=== PATIENT | male | born 1985 | race Two or more races ===

== ENCOUNTER 2017-04-07 18:03 | Emergency (ER) | payer SELFPAY ==
[~2017-04-07] VITALS: Ht 162.6 cm; Wt 72.6 kg
[2017-04-07 18:11] VITALS: BP 140/96
[2017-04-07] MEDS ORDERED: TRAM50TA PO (18:22)
[2017-04-07] MEDS ORDERED: NAPR500T PO (18:22)
--- NOTE | 2017-04-07 18:22 | PHYS DOC ---
Past Medical History Past Medical History: No Pertinent History Past Surgical History: No Surgical History Alcohol Use: None Drug Use: None Adult General Chief Complaint Chief Complaint: SKIN PROBLEM HPI HPI Patient is a 32 year old male presents to the emergency department with complaint of a rash to the left side of his neck and face for 4 days. He was evaluated at a clinic 2 days ago and placed on acyclovir. He is not given pain medication at that time. He is here seeking pain relief. He denies fever, headache, nausea, vomiting. He denies neck pain although does complain of skin pain on the neck. Review of Systems Review of Systems Constitutional: Denies fever or chills [] Eyes: Denies change in visual acuity, redness, or eye pain [] HENT: Denies nasal congestion or sore throat [] Respiratory: Denies cough or shortness of breath [] Cardiovascular: No additional information not addressed in HPI [] GI: Denies abdominal pain, nausea, vomiting, bloody stools or diarrhea [] : Denies dysuria or hematuria [] Musculoskeletal: Denies back pain or joint pain [] Integument: Denies rash or skin lesions [] Neurologic: Denies headache, focal weakness or sensory changes [] Endocrine: Denies polyuria or polydipsia [] Allergies Allergies Allergies Coded Allergies Type Severity Reaction Last Updated Verified No Known Drug Allergies 04/07/17 No Physical Exam Physical Exam Constitutional: Well developed, well nourished, no acute distress, non-toxic appearance. [] HENT: Normocephalic, atraumatic, bilateral external ears normal, oropharynx moist, no oral exudates, nose normal. [] Eyes: PERRLA, EOMI, conjunctiva normal, no discharge. [] Neck: Normal range of motion, no tenderness, supple, no stridor. [] Cardiovascular:Heart rate regular rhythm, no murmur [] Lungs & Thorax: Bilateral breath sounds clear to auscultation [] Abdomen: Bowel sounds normal, soft, no tenderness, no masses, no pulsatile masses. [] Skin: Warm, dry dermatomes left, C4, C5 with a erythematous base vesicular rash , tender to light touch. Back: No tenderness, no CVA tenderness. [] Extremities: No tenderness, no cyanosis, no clubbing, ROM intact, no edema. [] Neurologic: Alert and oriented X 3, normal motor function, normal sensory function, no focal deficits noted. [] Psychologic: Affect normal, judgement normal, mood normal. [] Current Patient Data Vital Signs Vital Signs Date Time Temp Pulse Resp B/P (MAP) Pulse Ox O2 Delivery O2 Flow Rate FiO2 04/07/17 18:11 99.4 89 16 97 Room Air 99.4 EKG EKG [] Radiology/Procedures Radiology/Procedures [] Course & Med Decision Making Course & Med Decision Making Pertinent Labs and Imaging studies reviewed. (See chart for details) [] Dragon Disclaimer Dragon Disclaimer This electronic medical record was generated, in whole or in part, using a voice recognition dictation system. Departure Departure Impression: Primary Impression: Shingles outbreak Disposition: HOME, SELF-CARE Condition: STABLE [facility]errals: [facility] Patient Instructions: Shingles Additional Instructions: Continue the acyclovir prescription as labeled Scripts Tramadol Hcl (TRAMADOL HCL) 50 Mg Tablet 50 MG PO Q6HRS Y for PAIN, #20 TAB 0 Refills Prov: KRISTIN ALSTON APRN 04/07/17 Naproxen (NAPROSYN) 500 Mg Tablet 500 MG PO BID Y for PAIN, #20 TAB Prov: KRISTIN ALSTON APRN 04/07/17 Problem Qualifiers Primary Impression: Shingles outbreak Herpes zoster complications: without complications Qualified Codes: B02.9 - Zoster without complications KRISTIN ALSTON APRN Apr 07, 2017 18:22
[2017-04-07] MEDS ORDERED: KETOROLAC TROMETHAMINE 60 MG/2 ML INJ. IM ONE (18:30)
== END 2017-04-07 18:25 | disposition home or self-care (01) ==
LOC: ER 18:03
DX: B02.9 Zoster without complications (principal)
CPT/HCPCS: 96372; 99283; J1885

== ENCOUNTER 2019-11-17 16:06 | Emergency (ER) | payer OTHER ==
[~2019-11-17] VITALS: Ht 167.6 cm; Wt 81.0 kg
[~2019-11-17 16:06] MED LIST: NAPR-683 PO; TRAM50TA PO
--- NOTE | 2019-11-17 16:25 | PHYS DOC ---
Past Medical History Past Medical History: No Pertinent History Past Surgical History: No Surgical History Smoking Status: Never Smoker Alcohol Use: None Drug Use: None Adult General Chief Complaint Chief Complaint: TRAUMA ALERT [facility] HPI Patient is a 34 year old male who presents with a fall off a ladder at 1:30 PM today. The patient fell 12 feet states he slipped. The patient is unable to ambulate on his right leg. The patient is having tenderness to his right femur, right tib-fib, right ankle. Denies any other symptoms. Denies any blood thinner use, denies loss of consciousness. Complete ROS were reviewed and found to be within normal limits, except as documented in the HPI Current Medications Current Medications Current Medications Medications (Trade) Dose Ordered Sig/Ene Start Time Stop Time Status Last Admin Dose Admin Ondansetron HCl (Zofran Odt) 4 mg 1X ONCE 11/17/19 17:15 11/17/19 17:16 DC 11/17/19 17:15 4 MG Allergies Allergies Allergies Coded Allergies Type Severity Reaction Last Updated Verified No Known Drug Allergies 04/07/17 No Physical Exam Physical Exam Constitutional: Well developed, well nourished, no acute distress, non-toxic appearance. [] HENT: Normocephalic, atraumatic, bilateral external ears normal, oropharynx moist, no oral exudates, nose normal. [] Eyes: PERRLA, EOMI, conjunctiva normal, no discharge. [] Neck: Normal range of motion, no tenderness, supple, no stridor. [] Cardiovascular:Heart rate regular rhythm, no murmur [] Lungs & Thorax: Bilateral breath sounds clear to auscultation [] Abdomen: Bowel sounds normal, soft, no tenderness, no masses, no pulsatile masses. [] Extremities: Tenderness to right hip, right femur, right tib-fib area, right ankle. Edema was able to be felt on the lateral side of the right femur. Patient is unable to ambulate on the leg. Neurologic: Alert and oriented X 3, normal motor function, normal sensory function, no focal deficits noted. [] Psychologic: Affect normal, judgement normal, mood normal. [] Current Patient Data Vital Signs Vital Signs Date Time Temp Pulse Resp B/P (MAP) Pulse Ox O2 Delivery O2 Flow Rate FiO2 11/17/19 16:21 98.9 83 16 126/83 (97) 97 Room Air 98.9 EKG EKG [] Radiology/Procedures Radiology/Procedures [facility] [address] [place] [address] IMAGING REPORT Signed PATIENT: GIULIA ASTORGA ACCOUNT: [id number] : 1985 LOCATION: ER AGE: 34 SEX: M EXAM STATUS: REG ER ORD. PHYSICIAN: KEVIN BERKOWITZ APRN REASON: fall PROCEDURE: CT CERVICAL SPINE WO CONTRAST INDICATION: Trauma COMPARISON: None. TECHNIQUE: Axial CT images obtained through the head, face and cervical spine. One or more of the following individualized dose reduction techniques were utilized for this examination: 1. Automated exposure control; 2. Adjustment of the mA and/or kV according to patient size; 3. Use of iterative reconstruction technique. FINDINGS: Head: Small fluid right maxillary sinus. Bowing of the nasal septum. No evidence of hydrocephalus. No definite acute intracranial hemorrhage. Cervical spine: No evidence of acute fracture or dislocation. Minimal degenerative changes with osteophyte formation. Facial: Small amount of fluid within the right maxillary sinus with minimal mucosal thickening left maxillary sinus as well. Buckling of the nasal septum with angulation and bowing. Scattered mildly prominent lymph nodes within the face and upper neck. Subcutaneous edema in the fat in the right side of the face IMPRESSION: * No acute intracranial hemorrhage. * No evidence of cervical spine fracture. * Bowing of the nasal septum with angulation. Could be the patient's baseline appearance but would correlate with symptoms in the region since a fracture of unknown age could have this appearance if the patient has trauma and pain to the region. * There is some subcutaneous high density structures lateral to the right orbit. Could be calcifications within the soft tissues unless the patient has an overlying laceration to suggest alternative causes such as foreign body. * There is some fluid in the right maxillary sinus. * Subcutaneous edema in the right side of the face could be posttraumatic. Electronically signed by: Socorro Rivers MD (11/17/2019 5:40 PM) [id number] DICTATED and SIGNED BY: SOCORRO RIVRES MD DATE: 11/17/19 1740 [][facility] [address] [place] [address] IMAGING REPORT Signed PATIENT: GIULIA ASTORGA ACCOUNT: [id number] : 1985 LOCATION: ER AGE: 34 SEX: M EXAM STATUS: REG ER ORD. PHYSICIAN: KEVIN BERKOWITZ APRN REASON: fall 12 feet PROCEDURE: TIBIA FIBULA RIGHT Exam: Pelvis 1 view, right femur 2 views, right knee 3 views, right tibia and fibula 2 views, right ankle 3 views INDICATION: Fall from 12 feet TECHNIQUE: Frontal view of the pelvis, frontal and lateral views of the right tibia and fibula and right femur. Frontal, lateral and oblique views of the right knee and ankle Comparisons: None FINDINGS: Pelvis: Bone mineralization is normal. No acute or healed fractures. Soft tissues are unremarkable. Joint spaces are well-maintained. Femur: Bone mineralization is normal. No acute or healed fractures. Soft tissues are unremarkable. Joint spaces are well-maintained. Knee: Bone mineralization is normal. No acute or healed fractures. Soft tissues are unremarkable. Joint spaces are well-maintained. Tib-fib: Bone mineralization is normal. No acute or healed fractures. Soft tissues are unremarkable. Joint spaces are well-maintained. Ankle: Bone mineralization is normal. No acute or healed fractures. Soft tissues are unremarkable. Joint spaces are well-maintained. IMPRESSION: 1. No acute osseous abnormality of the pelvis. Patient is acutely unable to bear weight MRI to rule out occult hip fracture is recommended. 2. No acute osseous abnormality of the right femur. 3. No acute osseous abnormality of the right knee. 4. No acute osseous abnormality of the right tib-fib 5. No acute osseous abnormality of the right ankle Electronically signed by: Amador Butler MD (11/17/2019 5:02 PM) [id number] Course & Med Decision Making Course & Med Decision Making Pertinent Labs and Imaging studies reviewed. (See chart for details) Patient was trauma alerted on arrival to the ER. Imaging will be obtained to evaluate the right lower extremity and hip. Imaging is unremarkable so will have patient placed in crutches and have follow- up with primary care doctor. Pearl Disclaimer Dragon Disclaimer This electronic medical record was generated, in whole or in part, using a voice recognition dictation system. Departure Departure Impression: Primary Impression: Fall Disposition: 01 HOME, SELF-CARE Condition: STABLE Referrals: NO PCP (PCP) Patient Instructions: Fall Prevention in Hospitals Additional Instructions: Thank you for visiting [facility]. We appreciate you trusting us with your care. If any additional problems come up don't hesitate to return to visit us. Please follow up with your primary care provider so they can plan additional care if needed and know about the problem that you had. If symptoms worsen come back to the Emergency Department. Any concerning symptoms that start such as chest pain, shortness of air, weakness or numbness on one side of the body, running high fevers or any other concerning symptoms return to the ER. Please use crutches as needed and follow-up with your primary care doctor in a week Problem Qualifiers Primary Impression: Fall Encounter type: initial encounter Qualified Codes: W19.XXXA - Unspecified fall, initial encounter KEVIN BERKOWITZ APRN Nov 17, 2019 16:25
--- NOTE | 2019-11-17 17:05 | RAD ---
Exam: Pelvis 1 view, right femur 2 views, right knee 3 views, right tibia and fibula 2 views, right ankle 3 views INDICATION: Fall from 12 feet TECHNIQUE: Frontal view of the pelvis, frontal and lateral views of the right tibia and fibula and right femur. Frontal, lateral and oblique views of the right knee and ankle Comparisons: None FINDINGS: Pelvis: Bone mineralization is normal. No acute or healed fractures. Soft tissues are unremarkable. Joint spaces are well-maintained. Femur: Bone mineralization is normal. No acute or healed fractures. Soft tissues are unremarkable. Joint spaces are well-maintained. Knee: Bone mineralization is normal. No acute or healed fractures. Soft tissues are unremarkable. Joint spaces are well-maintained. Tib-fib: Bone mineralization is normal. No acute or healed fractures. Soft tissues are unremarkable. Joint spaces are well-maintained. Ankle: Bone mineralization is normal. No acute or healed fractures. Soft tissues are unremarkable. Joint spaces are well-maintained. IMPRESSION: 1. No acute osseous abnormality of the pelvis. Patient is acutely unable to bear weight MRI to rule out occult hip fracture is recommended. 2. No acute osseous abnormality of the right femur. 3. No acute osseous abnormality of the right knee. 4. No acute osseous abnormality of the right tib-fib 5. No acute osseous abnormality of the right ankle Electronically signed by: Amador Butler MD (11/17/2019 5:02 PM) [id number]
[2019-11-17] MEDS ORDERED: ONDANSETRON ODT 4 MG TAB.RAPDIS. PO ONE (17:15)
[2019-11-17 17:30] VITALS: BP 137/81
--- NOTE | 2019-11-17 17:43 | RAD ---
INDICATION: Trauma COMPARISON: None. TECHNIQUE: Axial CT images obtained through the head, face and cervical spine. One or more of the following individualized dose reduction techniques were utilized for this examination: 1. Automated exposure control; 2. Adjustment of the mA and/or kV according to patient size; 3. Use of iterative reconstruction technique. FINDINGS: Head: Small fluid right maxillary sinus. Bowing of the nasal septum. No evidence of hydrocephalus. No definite acute intracranial hemorrhage. Cervical spine: No evidence of acute fracture or dislocation. Minimal degenerative changes with osteophyte formation. Facial: Small amount of fluid within the right maxillary sinus with minimal mucosal thickening left maxillary sinus as well. Buckling of the nasal septum with angulation and bowing. Scattered mildly prominent lymph nodes within the face and upper neck. Subcutaneous edema in the fat in the right side of the face IMPRESSION: * No acute intracranial hemorrhage. * No evidence of cervical spine fracture. * Bowing of the nasal septum with angulation. Could be the patient's baseline appearance but would correlate with symptoms in the region since a fracture of unknown age could have this appearance if the patient has trauma and pain to the region. * There is some subcutaneous high density structures lateral to the right orbit. Could be calcifications within the soft tissues unless the patient has an overlying laceration to suggest alternative causes such as foreign body. * There is some fluid in the right maxillary sinus. * Subcutaneous edema in the right side of the face could be posttraumatic. Electronically signed by: Ned Baptiste MD (11/17/2019 5:40 PM) [id number]
[2019-11-17] MEDS ORDERED: KETOROLAC TROMETHAMINE 10 MG TABLET PO STA (18:21)
== END 2019-11-17 18:46 | disposition home or self-care (01) ==
LOC: ER 16:06
DX: M79.651 Pain in right thigh (principal); M79.661 Pain in right lower leg; M25.571 Pain in right ankle and joints of right foot; M25.551 Pain in right hip; R60.0 Localized edema; W11.XXXA Fall on and from ladder, initial encounter; Y93.89 Activity, other specified; Y92.89 Other specified places as the place of occurrence of the external cause; Y99.8 Other external cause status
CPT/HCPCS: 70450; 70486; 72125; 72170; 73552; 73562; 73590; 73610; 99285-25; Q0162

== ENCOUNTER 2019-11-25 08:36 | Emergency (ER) | payer SELFPAY ==
[~2019-11-25] VITALS: Ht 162.6 cm; Wt 82.0 kg
[2019-11-25 08:45] VITALS: BP 130/94
--- NOTE | 2019-11-25 09:17 | PHYS DOC ---
Past Medical History Past Medical History: No Pertinent History Past Surgical History: No Surgical History Smoking Status: Never Smoker Alcohol Use: None Drug Use: None Adult General Chief Complaint Chief Complaint: LOWER EXT PAIN HPI HPI Patient is a 34 year old [place]ican-speaking male without history of medical problem who presents with complaint of leg pain. Patient had a fall from 12 feet high ladder on November 16 and was seen in this emergency room with trauma alert activation and extensive x-ray and CT with unremarkable finding. Patient states he is able to walk but he still has pain in right leg and thigh and lower abdomen. Patient rated his pain 8/10 and denied taking any pain medication today because decided to come to the hospital. 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 Patient denies fever and chills, shortness of breath, focal neuro deficit, urinary symptoms. Review of Systems Review of Systems Constitutional: Denies fever or chills [] Eyes: Denies change in visual acuity, redness, or eye pain [] HENT: Denies nasal congestion or sore throat [] Respiratory: Denies cough or shortness of breath [] Cardiovascular: No additional information not addressed in HPI [] GI: Report abdominal pain, denies nausea, vomiting, bloody stools or diarrhea [] : Denies dysuria or hematuria [] Musculoskeletal: Denies back pain, reports joint pain [] Integument: Denies rash or skin lesions [] Neurologic: Denies headache, focal weakness or sensory changes [] Endocrine: Denies polyuria or polydipsia [] All other systems were reviewed and found to be within normal limits, except as documented in this note. Current Medications Current Medications Current Medications Medications (Trade) Dose Ordered Sig/[facility] Start Time Stop Time Status Last Admin Dose Admin Tramadol HCl (Ultram) 50 mg 1X ONCE 11/25/19 09:15 11/25/19 09:16 DC 11/25/19 09:35 50 MG Allergies Allergies Allergies Coded Allergies Type Severity Reaction Last Updated Verified No Known Drug Allergies 04/07/17 No Physical Exam Physical Exam Constitutional: Well developed, well nourished, mild distress, non-toxic appearance. [] HENT: Normocephalic, atraumatic. Eyes: PERRLA, EOMI, conjunctiva normal, no discharge. [] Neck: Normal range of motion, no tenderness, supple, no stridor. [] Cardiovascular:Heart rate regular rhythm, no murmur [] Lungs & Thorax: Bilateral breath sounds clear to auscultation [] Abdomen: Bowel sounds normal, soft, no tenderness, no masses, no pulsatile masses. [] Skin: Warm, dry, no erythema, no rash. [] Back: No tenderness, no CVA tenderness. [] Extremities: Right lower extremity without deformity, small old ecchymosis in right lateral thigh, no tenderness, no cyanosis, no clubbing, ROM intact, no edema. [] Neurologic: Alert and oriented X 3, no focal deficits noted. [] Psychologic: Affect normal, judgement normal, mood normal. [] Current Patient Data Vital Signs Vital Signs Date Time Temp Pulse Resp B/P (MAP) Pulse Ox O2 Delivery O2 Flow Rate FiO2 11/25/19 09:35 20 99 Room Air 11/25/19 08:45 98.7 84 130/94 (106) 98.7 EKG EKG [] Radiology/Procedures Radiology/Procedures [facility] [address] [place] [address] IMAGING REPORT Signed PATIENT: ELIZABEHT THORNECCOUNT: [id number] : 1985 LOCATION: ER AGE: 34 SEX: M EXAM STATUS: REG ER ORD. PHYSICIAN: ALEX PATEL MD REASON: fall 8 days ag, pain in right leg PROCEDURE: VENOUS LOWER EXTREMITY RIGHT Examination: VENOUS LOWER EXTREMITY RIGHT History: Pain involving the right leg. Fall 8 days ago. Comparison/Correlation: None Findings: Color and spectral duplex ultrasound examination of the right lower extremity deep venous system was performed. Compression and augmentation are utilized. The right common femoral vein, superficial femoral vein, popliteal vein, saphenofemoral junction, and postsurgical veins are unremarkable. No thrombus identified. Normal flow was evident. Normal compressibility is identified. Ultrasound imaging of the right lateral calf and upper thigh region of swelling is unremarkable. Impression: No right lower extremity DVT. No suspicious collection at the regions of swelling at the lateral aspect of the right leg. Electronically signed by: Reynaldo Jiang MD (11/25/2019 9:35 AM) [id number] DICTATED and SIGNED BY: REYNALDO JIANG MD DATE: 11/25/19 0935 Course & Med Decision Making Course & Med Decision Making Pertinent Imaging studies reviewed. (See chart for details) Evaluation of patient in ER showed 34-year-old male patient with a fall 8 days ago and complaining of continued to have pain in right lower extremity. Patient had old contusion of right thigh with normal range of motion without neurovascular deficit. Ultrasound of lower extremity was unremarkable for DVT. Patient was advised to follow-up with work compensation clinic and continue ho tx medication. I've spoken with the patient and/or caregivers. I've explained the patient's condition, diagnosis and treatment plan based on information available to me at this time. I've answered the patient's and/or caregivers questions and addressed any concerns. The patient and/or caregivers have a good understanding the patient's diagnosis, condition and treatment plan as can be expected at this point. Vital signs have been stabilized. The patient's condition is stable for discharge from the emergency department. The patient will pursue further outpatient evaluation with her primary care provider or other designated consulting physician as outlined in the discharge instructions. Patient and/or caregivers are agreeable to this plan of care and follow-up instructions have been explained in detail. The patient and/or caregivers have received these instructions in written format and expressed understanding of these discharge instructions. The patient and her caregivers are aware that if any significant change in condition or worsening of symptoms should prompt him to immediately return to this of the closest emergency department. If an emergent department is not readily available I would encourage him to call 911. Pearl Disclaimer Pearl Disclaimer This electronic medical record was generated, in whole or in part, using a voice recognition dictation system. Departure Departure Impression: Primary Impression: Pain of right lower extremity Disposition: HOME, SELF-CARE (At 0952) Condition: STABLE Referrals: NO PCP (PCP) Patient Instructions: Contusion Additional Instructions: Drink plenty of liquids Follow-up with your primary care physician in 3-5 days Return to ER if not getting better Continue current home medication Follow-up with work compensation clinic Thank you for visiting [facility]. We appreciate you trusting us with your care. If any additional problems come up don't hesitate to return to visit us. Please follow up with your primary care provider so they can plan additional care if needed and know about the problem that you had. If symptoms worsen come back to the Emergency Department. Any concerning symptoms that start such as chest pain, shortness of air, weakness or numbness on one side of the body, running high fevers or any other concerning symptoms return to the ER. Scripts Naproxen (NAPROSYN) 500 Mg Tablet 1 TAB PO BID for pain, #20 TAB Prov: ALEX PATEL MD 11/25/19 Cyclobenzaprine Hcl (CYCLOBENZAPRINE HCL) 10 Mg Tablet 1 TAB PO TID, #21 TAB Prov: ALEX PATEL MD 11/25/19 ALEX PATEL MD Nov 25, 2019 09:16
[2019-11-25] MEDS: traMADol 50 MG TABLET PO ONE (09:35)
--- NOTE | 2019-11-25 09:38 | RAD ---
Examination: VENOUS LOWER EXTREMITY RIGHT History: Pain involving the right leg. Fall 8 days ago. Comparison/Correlation: None Findings: Color and spectral duplex ultrasound examination of the right lower extremity deep venous system was performed. Compression and augmentation are utilized. The right common femoral vein, superficial femoral vein, popliteal vein, saphenofemoral junction, and postsurgical veins are unremarkable. No thrombus identified. Normal flow was evident. Normal compressibility is identified. Ultrasound imaging of the right lateral calf and upper thigh region of swelling is unremarkable. Impression: No right lower extremity DVT. No suspicious collection at the regions of swelling at the lateral aspect of the right leg. Electronically signed by: Reynaldo Mart MD (11/25/2019 9:35 AM) [id number]
[2019-11-25] MEDS ORDERED: NAPR-683 PO (09:56)
[2019-11-25] MEDS ORDERED: CYCL10TA2 PO (09:56)
== END 2019-11-25 10:04 | disposition home or self-care (01) ==
LOC: ER 08:39
DX: M79.661 Pain in right lower leg (principal); R10.9 Unspecified abdominal pain
CPT/HCPCS: 93971; 99284